=== PATIENT | male | born 1965 | race Caucasian/White ===

== ENCOUNTER 2024-03-06 14:44 | Emergency (ER) | payer OTHER ==
[2024-03-06 15:13] VITALS: BP 142/79; PULSE 67
[2024-03-06 15:26] LABS: APPEARANCE,URINE CLEAR (CLEAR); BILIRUBIN,URINE NEGATIVE (NEGATIVE); COLOR,URINE YELLOW (YELLOW); GLUCOSE,URINE NEGATIVE (NEGATIVE); KETONES,URINE 40 mg/dL (NEGATIVE); LEUKOCYTE ESTERASE,URINE NEGATIVE (NEGATIVE); NITRITE,URINE NEGATIVE (NEGATIVE); OCCULT BLOOD,URINE NEGATIVE (NEGATIVE); PH,URINE 5.5 (5.0-8.0); PROTEIN,URINE NEGATIVE (NEGATIVE); UROBILINOGEN,URINE 0.2 EU/dL (0.2-1.0)
[2024-03-06 15:33] LABS: AMORPHOUS SEDIMENT,URINE NOT SEEN; BACTERIA,URINE NOT SEEN; EPITHELIAL CELLS,URINE NOT SEEN; MUCUS,URINE NOT SEEN; RBC,URINE 0-5 (0-5); WBC,URINE NOT SEEN (0-5)
[2024-03-06] MEDS: Ketorolac 30 MG/ML SDV IM ONE (15:40)
== END 2024-03-06 17:04 | disposition home or self-care (01) ==
LOC: JP.ED 14:44
DX: M79.10 Myalgia, unspecified site (principal); F17.210 Nicotine dependence, cigarettes, uncomplicated; Z86.16 Personal history of COVID-19; Z91.030 Bee allergy status
CPT/HCPCS: 74176; 74176-26; 81001; 96372; 99284; J1885

== ENCOUNTER 2024-05-06 08:04 | Day surgery (SDC) | payer OTHER ==
[2024-05-06] MEDS: Lactated Ringers 1,000 ML IV SCH (08:41)
[2024-05-06] MEDS ORDERED: Propofol 200 MG/20 ML SDV ONE (08:47)
[2024-05-06] MEDS ORDERED: fentaNYL 50 MCG/ML SDV ONE (08:48)
[2024-05-06] MEDS ORDERED: Midazolam 1 MG/ML 2 ML SDV ONE (08:48)
== END 2024-05-06 10:50 | disposition home or self-care (01) ==
LOC: JP.SDS 08:04
PROVIDERS: ATTEND Surgery
DX: Z12.11 Encounter for screening for malignant neoplasm of colon (principal); Z80.0 Family history of malignant neoplasm of digestive organs
CPT/HCPCS: 00812; G0105; J2250; J2704; J3010; J7120

== ENCOUNTER 2024-07-22 11:08 | Emergency (ER) | payer OTHER ==
[2024-07-22] MEDS: Cyclobenzaprine 10 MG Tab PO ONE (11:33)
[2024-07-22] MEDS: Ketorolac 30 MG/ML SDV IM ONE (11:34)
[2024-07-22] MEDS: HYDROmorphone 1 MG/ML Syringe IM ONE (13:49)
[2024-07-22] MEDS: HYDROmorphone 0.5 MG/0.5 ML Syringe IM ONE (14:00)
[2024-07-22] MEDS ORDERED: Sodium Chloride 0.9% 10 ML Syringe FLUSH PRN (14:11)
[2024-07-22 14:23] LABS: BASOPHILS ABSOLUTE AUTO 0.07 K/uL (0.00-0.10); BASOPHILS PERCENT AUTO 0.4 % (0.1-1.3); EOSINOPHILS PERCENT AUTO 0.1 % (0.0-5.4); HEMATOCRIT 45.8 % (38.4-49.7); HEMOGLOBIN 15.4 g/dL (12.9-16.9); IMMATURE GRAN ABSOLUTE AUTO 0.09 K/uL (0.00-0.23); IMMATURE GRAN PERCENT AUTO 0.6 % (0.0-0.7); LYMPHOCYTES ABSOLUTE AUTO 1.68 K/uL (0.8-3.3); LYMPHOCYTES PERCENT AUTO 10.4 % (11.4-47.7); MEAN CORPUSCULAR HEMOGLOBIN 29.6 pg (31.6-35.5); MEAN CORPUSCULAR HGB CONC 33.6 g/dL (31.6-35.5); MEAN CORPUSCULAR VOLUME 88.1 fL (81.4-99.0); MONOCYTES ABSOLUTE AUTO 0.62 K/uL (0.20-0.90); MONOCYTES PERCENT AUTO 3.9 % (3.3-12.6); NEUTROPHILS ABSOLUTE AUTO 13.63 K/uL (1.0-7.6); NEUTROPHILS PERCENT AUTO 84.6 % (40.0-78.1); PLATELET COUNT,PLT 198 K/uL (130-375); WHITE BLOOD CELL COUNT,WBC 16.1 K/uL (3.2-11.0)
[2024-07-22 14:25] LABS: EOSINOPHILS ABSOLUTE AUTO 0.01 K/uL (0.00-0.40)
[2024-07-22 14:44] LABS: A/G RATIO 1.1 (1.2-2.2); ALANINE AMINOTRANSFERASE,ALT 28 U/L (12-78); ALKALINE PHOSPHATASE 278 U/L (46-116); ASPARTATE AMNIOTRANSFERASE,AST 21 U/L (15-37); BILIRUBIN TOTAL 0.7 mg/dL (0.2-1.0); BLOOD UREA NITROGEN,BUN 16 mg/dL (7-18); CALCIUM 8.8 mg/dL (8.5-10.1); CARBON DIOXIDE,CO2 28 mmol/L (21-32); CHLORIDE,CL 100 mmol/L (100-108); CREATININE 1.3 mg/dL (0.8-1.3); ESTIMATED GFR 63 mL/min (>60); GLUCOSE RANDOM 87 mg/dL (74-106); POTASSIUM,K 4.1 mmol/L (3.6-5.2); PROTEIN TOTAL,TP 7.5 g/dL (6.4-8.2); SODIUM,NA 137 mmol/L (140-148)
[2024-07-22 14:46] LABS: ANION GAP 13.1 mmol/L (5.0-14.0)
[2024-07-22] MEDS: Sodium Chloride 0.9% 10 ML Syringe FLUSH ONE (14:54)
[2024-07-22] MEDS: Sodium Chloride 0.9% 80 ML IV SCH (14:54)
[2024-07-22] MEDS: Iopamidol 612 MG/ML 100 ML Bottle IV PRN (14:54)
== END 2024-07-22 16:27 | disposition home or self-care (01) ==
LOC: JP.ED 11:08
DX: S32.010A Wedge compression fracture of first lumbar vertebra, initial encounter for closed fracture (principal); Z91.030 Bee allergy status; Z79.899 Other long term (current) drug therapy; Z86.16 Personal history of COVID-19; X50.1XXA Overexertion from prolonged static or awkward postures, initial encounter
CPT/HCPCS: 36415; 74177; 80053; 83605; 83690; 85025; 96372; 99001; 99284; A9270; J1885; Q9967